=== PATIENT | male | born 1955 | race Caucasian/White ===

== ENCOUNTER 2017-01-26 13:04 | Outpatient (CLI) | payer OTHER ==
[2017-01-26 18:01] LABS: BASOPHILS # (AUTO) 0.1 10^3/uL (0.0-0.1); BASOPHILS % (AUTO) 0.9 %; EOSINOPHILS # (AUTO) 0.2 10^3/uL (0.0-0.7); EOSINOPHILS % (AUTO) 1.7 %; HCT - HEMATOCRIT 45.7 % (42.0-52.0); HGB - HEMOGLOBIN 15.5 g/dL (14.0-18.0); LYMPHOCYTES # (AUTO) 2.8 10^3/uL (1.5-3.5); LYMPHOCYTES % (AUTO) 27.7 %; MEAN CORPUSCULAR HEMOGLOBIN 30.8 pg (27.0-31.0); MEAN CORPUSCULAR VOLUME 90.8 fL (80.0-94.0); MEAN PLATELET VOLUME 7.5 fL (7.4-11.4); MONOCYTES # (AUTO) 0.6 10^3/uL (0.0-1.0); MONOCYTES % (AUTO) 5.6 %; NEUTROPHILS # (AUTO) 6.4 10^3/uL (1.5-6.6); NEUTROPHILS % (AUTO) 64.1 %; RED BLOOD COUNT 5.04 10^6/uL (4.70-6.10); RED CELL DISTRIBUTION WIDTH 13.9 % (12.0-15.0)
[2017-01-26 18:51] LABS: ALBUMIN/GLOBULIN RATIO 1.1 (1.0-2.2); BILIRUBIN,TOTAL 0.7 mg/dL (0.2-1.0); BUN - BLOOD UREA NITROGEN 9 mg/dL (6-20); CALCIUM 9.4 mg/dL (8.5-10.3); CARBON DIOXIDE - CO2 25 mmol/L (21-32); CHLORIDE 102 mmol/L (101-111); CHOL/HDL RATIO 5.1 (<5.0); CHOLESTEROL 192 mg/dL; CREATININE 0.9 mg/dL (0.6-1.2); GFR - MDRD 86 (>89); GLUCOSE 91 mg/dL (70-100); HDL CHOLESTEROL 38 mg/dL; LDL/HDL RATIO 3.1 (<3.6); MAGNESIUM 1.9 mg/dL (1.7-2.8); POTASSIUM 3.7 mmol/L (3.5-5.0); SODIUM 135 mmol/L (135-145); TRIGLYCERIDES 178 mg/dL; VLDL CHOLESTEROL 36 mg/dL
== END 2017-01-26 13:05 | disposition home or self-care (01) ==
LOC: LAB.F 13:04
PROVIDERS: ATTEND Internal Medicine
DX: E78.00 Pure hypercholesterolemia, unspecified (principal); J32.9 Chronic sinusitis, unspecified; I49.40 Unspecified premature depolarization
CPT/HCPCS: 36415; 80053; 80061; 83735; 84443; 85025

== ENCOUNTER 2017-02-01 10:58 | Outpatient (CLI) | payer OTHER ==
--- NOTE | 2017-02-01 12:56 | CT Report ---
CT OF SINUSES WITHOUT CONTRAST: 02/01/2017 CLINICAL INDICATION: Chronic sinus disease. TECHNIQUE: Axial CT images of the paranasal sinuses were obtained without contrast, following which s agittal and coronal reconstructions were performed. FINDINGS: There is a mucous retention cyst or polyp in the inferior right maxillary sinus. Otherwise , the paranasal sinuses are clear. The ostiomeatal units are patent bilaterally. There is rightward d eviation of the nasal septum. No osseous destruction is seen. The visualized intraorbital contents ar e unremarkable. IMPRESSION: MUCOUS RETENTION CYST OR POLYP IN THE INFERIOR RIGHT MAXILLARY SINUS. In accordance with CT protocol optimization, one or more of the following dose reduction techniques w ere utilized for this exam: automated exposure control, adjustment of mA and/or KV based on patient size, or use of iterative reconstructive technique. JOB #: [id number] EXT JOB #:[id number]
== END 2017-02-01 10:59 | disposition home or self-care (01) ==
LOC: DI 10:58
PROVIDERS: ATTEND Internal Medicine
DX: J32.9 Chronic sinusitis, unspecified (principal)
CPT/HCPCS: 70486

== ENCOUNTER 2017-06-24 07:13 | Outpatient (CLI) | payer OTHER ==
--- NOTE | 2017-06-24 10:43 | CT Report ---
CT ABDOMEN AND PELVIS WITHOUT CONTRAST: 06/24/2017 CLINICAL INDICATION: Renal stone, hematuria. TECHNIQUE: Axial CT images of the abdomen and pelvis were obtained without oral or intravenous contrast. COMPARISON: 08/09/2006 FINDINGS: Limited evaluation of the lung bases is unremarkable. ABDOMEN: There is no evidence of nephrolithiasis or hydronephrosis. No hydroureter is seen. Allowing for the lack of intravenous contrast enhancement, the liver, spleen, pancreas and adrenal glands are unremarkable. The gallbladder is not distended. No bowel dilatation, free gas, or free fluid is present. No abdominal adenopathy is seen. PELVIS: The urinary bladder appears unremarkable. No pelvic adenopathy or free fluid is present. Osseous structures demonstrate degenerative changes. IMPRESSION: NO EVIDENCE OF NEPHROLITHIASIS OR HYDRONEPHROSIS. CT DOSE REDUCTION STATEMENT In accordance with CT protocol optimization, one or more of the following dose reduction techniques were utilized for this exam: automated exposure control, adjustment of mA and/or KV based on patient size, or use of iterative reconstructive technique. TD: 06/24/2017 10:42
== END 2017-06-24 07:14 | disposition home or self-care (01) ==
LOC: DI 07:13
PROVIDERS: ATTEND Family Medicine
DX: N20.0 Calculus of kidney (principal); R31.9 Hematuria, unspecified
CPT/HCPCS: 74176

== ENCOUNTER 2017-07-02 08:37 | Outpatient (CLI) | payer OTHER ==
[2017-07-02 10:23] LABS: BASOPHILS # (AUTO) 0.1 10^3/uL (0.0-0.1); BASOPHILS % (AUTO) 0.8 %; EOSINOPHILS # (AUTO) 0.3 10^3/uL (0.0-0.7); EOSINOPHILS % (AUTO) 4.2 %; HGB - HEMOGLOBIN 12.3 g/dL (14.0-18.0); LYMPHOCYTES # (AUTO) 1.8 10^3/uL (1.5-3.5); LYMPHOCYTES % (AUTO) 23.5 %; MEAN CORPUSCULAR HEMOGLOBIN 30.6 pg (27.0-31.0); MEAN CORPUSCULAR HGB CONC 34.1 g/dL (32.0-36.0); MEAN CORPUSCULAR VOLUME 89.6 fL (80.0-94.0); MEAN PLATELET VOLUME 7.3 fL (7.4-11.4); MONOCYTES # (AUTO) 0.5 10^3/uL (0.0-1.0); MONOCYTES % (AUTO) 5.9 %; NEUTROPHILS # (AUTO) 5.1 10^3/uL (1.5-6.6); NEUTROPHILS % (AUTO) 65.6 %; PLT - PLATELET COUNT 302 10^3/uL (130-450); RED BLOOD COUNT 4.02 10^6/uL (4.70-6.10); RED CELL DISTRIBUTION WIDTH 13.3 % (12.0-15.0); WHITE BLOOD COUNT 7.9 x10^3/uL (4.8-10.8)
[2017-07-02 10:36] LABS: ALBUMIN/GLOBULIN RATIO 1.3 (1.0-2.2); ALKALINE PHOSPHATASE 77 IU/L (42-121); ALT ALANINE AMINOTRANSFERASE 49 IU/L (10-60); AST ASPARTATE AMINOTRANSFERASE 37 IU/L (10-42); BILIRUBIN,TOTAL 0.6 mg/dL (0.2-1.0); BUN - BLOOD UREA NITROGEN 15 mg/dL (6-20); CALCIUM 8.8 mg/dL (8.5-10.3); CARBON DIOXIDE - CO2 28 mmol/L (21-32); CHLORIDE 104 mmol/L (101-111); CHOL/HDL RATIO 2.6 (<5.0); CHOLESTEROL 89 mg/dL; CREATININE 0.9 mg/dL (0.6-1.2); GFR - MDRD 85 (>89); GLUCOSE 93 mg/dL (70-100); HDL CHOLESTEROL 34 mg/dL; LDL CHOLESTEROL,CALCULATED 38 mg/dL; LDL/HDL RATIO 1.1 (<3.6); SODIUM 137 mmol/L (135-145); TOTAL PROTEIN 7.2 g/dL (6.7-8.2); VLDL CHOLESTEROL 17 mg/dL
== END 2017-07-02 08:38 | disposition home or self-care (01) ==
LOC: LAB.F 08:37
PROVIDERS: ATTEND Family Medicine
DX: E78.00 Pure hypercholesterolemia, unspecified (principal); I25.10 Atherosclerotic heart disease of native coronary artery without angina pectoris; F32.9 Major depressive disorder, single episode, unspecified; M54.5 Low back pain
CPT/HCPCS: 36415; 80053; 80061; 83721; 84443; 85025

== ENCOUNTER 2017-07-05 14:03 | Outpatient (CLI) | payer OTHER ==
[2017-07-05 17:57] LABS: BASOPHILS # (AUTO) 0.1 10^3/uL (0.0-0.1); BASOPHILS % (AUTO) 1.1 %; EOSINOPHILS # (AUTO) 0.2 10^3/uL (0.0-0.7); EOSINOPHILS % (AUTO) 2.9 %; HGB - HEMOGLOBIN 11.9 g/dL (14.0-18.0); LYMPHOCYTES # (AUTO) 1.9 10^3/uL (1.5-3.5); LYMPHOCYTES % (AUTO) 25.6 %; MEAN CORPUSCULAR HEMOGLOBIN 30.1 pg (27.0-31.0); MEAN CORPUSCULAR HGB CONC 33.3 g/dL (32.0-36.0); MEAN CORPUSCULAR VOLUME 90.4 fL (80.0-94.0); MEAN PLATELET VOLUME 7.2 fL (7.4-11.4); MEAN RETIC VALUE 108.5; MONOCYTES # (AUTO) 0.5 10^3/uL (0.0-1.0); MONOCYTES % (AUTO) 6.2 %; NEUTROPHILS # (AUTO) 4.7 10^3/uL (1.5-6.6); NEUTROPHILS % (AUTO) 64.2 %; PLT - PLATELET COUNT 341 10^3/uL (130-450); RED BLOOD COUNT 3.94 10^6/uL (4.70-6.10); RED CELL DISTRIBUTION WIDTH 13.7 % (12.0-15.0); WHITE BLOOD COUNT 7.4 x10^3/uL (4.8-10.8)
[2017-07-05 18:24] LABS: FERRITIN 109.6 ng/mL (23.9-336.2)
[2017-07-05 18:28] LABS: FOLATE 11.12 ng/mL (5.90 - >24.8)
[2017-07-05 18:45] LABS: % IRON SATURATION 21 % (20-50); IRON 52 ug/dL (45-182); TOTAL IRON BINDING CAPACITY 248 ug/dL (250-450); TRANSFERRIN 177 mg/dL (180-329)
== END 2017-07-05 14:04 | disposition home or self-care (01) ==
LOC: LAB.F 14:03
PROVIDERS: ATTEND Family Medicine
DX: D64.9 Anemia, unspecified (principal)
CPT/HCPCS: 36415; 82607; 82728; 82746; 83540; 84466; 85025; 85044

== ENCOUNTER 2017-07-08 08:00 | Outpatient (CLI) | payer OTHER | END 2017-07-08 08:01 | disposition home or self-care (01) | LOC: LAB.F 08:00 | PROVIDERS: ATTEND Family Medicine | DX: D64.9 Anemia, unspecified (principal) | CPT/HCPCS: 82270 ==

== ENCOUNTER 2018-01-10 14:05 | Outpatient (CLI) | payer OTHER ==
[2018-01-10 17:45] LABS: BASOPHILS # (AUTO) 0.1 10^3/uL (0.0-0.1); EOSINOPHILS # (AUTO) 0.2 10^3/uL (0.0-0.7); EOSINOPHILS % (AUTO) 2.6 %; HGB - HEMOGLOBIN 13.5 g/dL (14.0-18.0); LYMPHOCYTES # (AUTO) 1.9 10^3/uL (1.5-3.5); LYMPHOCYTES % (AUTO) 29.5 %; MEAN CORPUSCULAR HEMOGLOBIN 30.5 pg (27.0-31.0); MEAN CORPUSCULAR HGB CONC 34.6 g/dL (32.0-36.0); MEAN CORPUSCULAR VOLUME 88.1 fL (80.0-94.0); MEAN PLATELET VOLUME 7.1 fL (7.4-11.4); MEAN RETIC VALUE 105.8; MONOCYTES # (AUTO) 0.5 10^3/uL (0.0-1.0); MONOCYTES % (AUTO) 7.7 %; NEUTROPHILS # (AUTO) 3.8 10^3/uL (1.5-6.6); NEUTROPHILS % (AUTO) 59.2 %; PLT - PLATELET COUNT 270 10^3/uL (130-450); RED BLOOD COUNT 4.42 10^6/uL (4.70-6.10); RED CELL DISTRIBUTION WIDTH 14.3 % (12.0-15.0); WHITE BLOOD COUNT 6.4 x10^3/uL (4.8-10.8)
[2018-01-10 18:20] LABS: FERRITIN 58.8 ng/mL (23.9-336.2)
[2018-01-10 18:22] LABS: % IRON SATURATION 30 % (20-50); IRON 89 ug/dL (45-182); TOTAL IRON BINDING CAPACITY 300 ug/dL (250-450); TRANSFERRIN 214 mg/dL (180-329)
[2018-01-10 18:24] LABS: FOLATE 10.4 ng/mL (5.90 - >24.8)
== END 2018-01-10 14:06 | disposition home or self-care (01) ==
LOC: LAB.F 14:05
PROVIDERS: ATTEND Family Medicine
DX: D64.9 Anemia, unspecified (principal)
CPT/HCPCS: 36415; 82607; 82728; 82746; 83540; 84466; 85025; 85044

== ENCOUNTER 2018-08-30 11:41 | Outpatient (CLI) | payer OTHER ==
[2018-08-30 18:02] LABS: HGB - HEMOGLOBIN 13.9 g/dL (14.0-18.0); MEAN CORPUSCULAR HGB CONC 33.7 g/dL (32.0-36.0); MEAN CORPUSCULAR VOLUME 88.8 fL (80.0-94.0); MEAN PLATELET VOLUME 7.6 fL (7.4-11.4); RED BLOOD COUNT 4.65 10^6/uL (4.70-6.10); WHITE BLOOD COUNT 6.4 x10^3/uL (4.8-10.8)
== END 2018-08-30 11:42 | disposition home or self-care (01) ==
LOC: LAB.F 11:41
PROVIDERS: ATTEND Physician Assistant Medical
DX: D64.9 Anemia, unspecified (principal)
CPT/HCPCS: 36415; 85027

== ENCOUNTER 2019-04-19 10:11 | Outpatient (CLI) | payer MEDICARE ==
[2019-04-19 17:20] LABS: ALBUMIN/GLOBULIN RATIO 1.1 (1.0-2.2); ALKALINE PHOSPHATASE 67 IU/L (42-121); ALT ALANINE AMINOTRANSFERASE 38 IU/L (10-60); AST ASPARTATE AMINOTRANSFERASE 31 IU/L (10-42); BILIRUBIN,TOTAL 1.1 mg/dL (0.2-1.0); BUN - BLOOD UREA NITROGEN 18 mg/dL (6-20); CALCIUM 8.9 mg/dL (8.5-10.3); CARBON DIOXIDE - CO2 24 mmol/L (21-32); CHLORIDE 106 mmol/L (101-111); CHOL/HDL RATIO 2.9 (<5.0); CHOLESTEROL 122 mg/dL; CREATININE 0.9 mg/dL (0.6-1.2); GFR - MDRD 85 (>89); GLUCOSE 95 mg/dL (70-100); HDL CHOLESTEROL 42 mg/dL; LDL CHOLESTEROL,CALCULATED 64 mg/dL; LDL/HDL RATIO 1.5 (<3.6); SODIUM 137 mmol/L (135-145); TOTAL PROTEIN 7.5 g/dL (6.7-8.2); VLDL CHOLESTEROL 16 mg/dL
== END 2019-04-19 10:12 | disposition home or self-care (01) ==
LOC: LAB.S 10:11
PROVIDERS: ATTEND Internal Medicine
DX: E78.00 Pure hypercholesterolemia, unspecified (principal)
CPT/HCPCS: 36415; 80053; 80061; 83721

== ENCOUNTER 2019-04-25 12:04 | Outpatient (CLI) | payer MEDICARE | END 2019-04-25 12:05 | disposition home or self-care (01) | LOC: LAB.S 12:04 | PROVIDERS: ATTEND Internal Medicine | DX: Z12.5 Encounter for screening for malignant neoplasm of prostate (principal) | CPT/HCPCS: 84153 ==

== ENCOUNTER 2019-05-31 09:56 | Day surgery (SDC) | payer MEDICARE ==
--- NOTE | 2019-05-31 10:21 | ANESTHESIA ---
Pre-Anesthesia VS, & Labs - Diagnosis screening, CAD - Procedure colonoscopy Vital Signs: Temp Pulse Resp BP Pulse Ox 36.3 C L 56 L 18 126/81 H 97 05/31/19 10:15 05/31/19 10:15 05/31/19 10:15 05/31/19 10:15 05/31/19 10:15 Height 5 ft 9 in Weight (kg) 76.5 kg - NPO >8 hours Home Medications and Allergies Home Medications: Ambulatory Orders Aspirin [Aspirin EC] 81 mg PO DAILY 05/26/19 Atorvastatin Calcium 80 mg PO QPM 05/26/19 Cetirizine [ZyrTEC] 10 mg PO DAILY PRN 05/26/19 Famotidine [Pepcid] 20 mg PO ONCE PRN 05/26/19 Fluticasone [Flonase] 1 sprays ANNA BID PRN 05/26/19 Lisinopril [Prinivil] 5 mg PO DAILY 05/26/19 Metoprolol Succinate 25 mg PO DAILY 05/26/19 Aspirin [Aspirin EC] 81 mg PO DAILY 05/26/19 Atorvastatin Calcium 80 mg PO QPM 05/26/19 Cetirizine [ZyrTEC] 10 mg PO DAILY PRN 05/26/19 Famotidine [Pepcid] 20 mg PO ONCE PRN 05/26/19 Fluticasone [Flonase] 1 sprays ANNA BID PRN 05/26/19 Lisinopril [Prinivil] 5 mg PO DAILY 05/26/19 Metoprolol Succinate 25 mg PO DAILY 05/26/19 Allergies/Adverse Reactions: Allergies Allergy/AdvReac Type Severity Reaction Status Date / Time oxycodone Allergy Rash Verified 05/26/19 15:17 Anes History & Medical History - Anesthetic History Anesthesia Complications: reports: No previous complications Family history of Anesthesia Complications: Denies Family history of Malignant Hyperthermia: Denies - Medical History Cardiovascular: reports: Hypertension, High cholesterol, [place], Other (hx Bigeminy) Gastrointestinal: reports: GERD Urinary: reports: Kidney stones Musculoskeletal: reports: None Endocrine/Autoimmune: reports: None Skin: reports: None - Surgical History General: Appendectomy, Colonoscopy, Other Cardiothoracic: Coronary stent Urologic: Ureterolithotomy (stones) Orthopedic: Rotator cuff repair Exam General: Alert, Oriented x3, Cooperative Dental: WNL Mouth Openin Fingerbreadth Neck Mobility: Normal Mallampati classification: I Thyromental Distance: greater than 6 cm Respiratory: Lungs clear, Normal breath sounds, No respiratory distress Cardiovascular: Regular rate Neurological: Normal speech Mental/Cognitive Status: Alert/Oriented X3, Normal for patient Cognitive Status: Within normal limits Plan Anesthesia Type: MAC Consent for Procedure(s) Verified and Reviewed: Yes Code Status: Attempt Resuscitation ASA classification: 3-Severe systemic disease Is this case an emergency?: No
[2019-05-31] MEDS ORDERED: LACTATED RINGERS 1,000 ML IV ONE (10:34)
[2019-05-31 12:40] VITALS: BP 115/72
== END 2019-05-31 09:57 | disposition home or self-care (01) ==
LOC: SDS 09:56
PROVIDERS: ATTEND Surgery
PROC: 0DBN8ZZ Excision of Sigmoid Colon, Via Natural or Artificial Opening Endoscopic (ICD-10-PCS; 2019-05-31)
PROC: 0DBH8ZZ Excision of Cecum, Via Natural or Artificial Opening Endoscopic (ICD-10-PCS; 2019-05-31)
PROC: 0DBK8ZZ Excision of Ascending Colon, Via Natural or Artificial Opening Endoscopic (ICD-10-PCS; principal; 2019-05-31 11:15)
DX: Z12.11 Encounter for screening for malignant neoplasm of colon (principal); D12.2 Benign neoplasm of ascending colon; D12.0 Benign neoplasm of cecum; K63.5 Polyp of colon; K57.30 Diverticulosis of large intestine without perforation or abscess without bleeding; I10 Essential (primary) hypertension; E78.00 Pure hypercholesterolemia, unspecified; I25.10 Atherosclerotic heart disease of native coronary artery without angina pectoris; I25.2 Old myocardial infarction; Z95.5 Presence of coronary angioplasty implant and graft; Z87.891 Personal history of nicotine dependence
CPT/HCPCS: 45380; J7120

== ENCOUNTER 2019-09-04 10:12 | Outpatient (CLI) | payer MEDICARE ==
--- NOTE | 2019-09-04 10:41 | XRAY Report ---
Reason: THORACIC BACK PAIN Procedure Date: 09/04/2019 Accession Number: [id number] / [id number] Procedure: XR - Thoracic Spine 2 View CPT Code: Final Report FULL RESULT: PROCEDURE: Thoracic Spine 2 View INDICATIONS: THORACIC BACK PAIN TECHNIQUE: 3 views of the thoracic spine were acquired. COMPARISON: None. FINDINGS: Bones: Loss of height noted in the T7 and T8 vertebral bodies compatible with compression fractures of indeterminate age. The T7 compression deformity results in approximately 30% loss of normal vertebral body height. The T8 compression deformity results in approximately 50% loss of normal vertebral body height. No retropulsed fragments are kyphosis associated with the T7 or T8 compression fractures. No dislocations. Mild multilevel degenerative disc changes. No suspicious bony lesions. 12 pairs of ribs are noted, and appear intact where visualized. Soft tissues: No paravertebral stripe thickening. IMPRESSION: T7 and T8 compression fractures of indeterminate age. Reviewed by: Farhana Khalil MD, PhD on 09/04/2019 10:36 AM PDT Approved by: Farhana Khalil MD, PhD on 09/04/2019 10:36 AM PDT Station ID: [id number]
== END 2019-09-04 10:13 | disposition home or self-care (01) ==
LOC: DI 10:12
PROVIDERS: ATTEND Registered Nurse
DX: M48.54XA Collapsed vertebra, not elsewhere classified, thoracic region, initial encounter for fracture (principal)
CPT/HCPCS: 72070

== ENCOUNTER 2020-01-23 08:56 | Outpatient (CLI) | payer MEDICARE ==
[2020-01-23 15:26] LABS: BASOPHILS # (AUTO) 0.1 10^3/uL (0.0-0.1); BASOPHILS % (AUTO) 0.8 %; EOSINOPHILS # (AUTO) 0.2 10^3/uL (0.0-0.7); EOSINOPHILS % (AUTO) 3.1 %; HGB - HEMOGLOBIN 13.9 g/dL (14.0-18.0); LYMPHOCYTES # (AUTO) 1.5 10^3/uL (1.5-3.5); LYMPHOCYTES % (AUTO) 24.3 %; MEAN CORPUSCULAR HEMOGLOBIN 30.8 pg (27.0-31.0); MEAN CORPUSCULAR HGB CONC 33.8 g/dL (32.0-36.0); MEAN CORPUSCULAR VOLUME 91.1 fL (80.0-94.0); MEAN PLATELET VOLUME 8.9 fL (7.4-11.4); MONOCYTES # (AUTO) 0.4 10^3/uL (0.0-1.0); MONOCYTES % (AUTO) 6.8 %; NEUTROPHILS % (AUTO) 64.5 %; PLT - PLATELET COUNT 306 10^3/uL (130-450); RED BLOOD COUNT 4.51 10^6/uL (4.70-6.10); RED CELL DISTRIBUTION WIDTH 12.5 % (12.0-15.0); WHITE BLOOD COUNT 6.2 x10^3/uL (4.8-10.8)
[2020-01-23 15:45] LABS: ALBUMIN 3.8 g/dL (3.2-5.5); CALCIUM 9.1 mg/dL (8.5-10.3); CREATININE 0.8 mg/dL (0.6-1.2); TOTAL PROTEIN 7.8 g/dL (6.7-8.2)
[2020-01-24 12:45] LABS: HEPATITIS C ANTIBODY NON-REACTIVE (NON-REACTIVE)
== END 2020-01-23 08:57 | disposition home or self-care (01) ==
LOC: LAB.S 08:56
PROVIDERS: ATTEND Registered Nurse
DX: R61 Generalized hyperhidrosis (principal); Z11.59 Encounter for screening for other viral diseases
CPT/HCPCS: 36415; 80053; 81599; 83036; 84443; 85025; 86480; 86803

== ENCOUNTER 2020-01-25 13:59 | Outpatient (CLI) | payer MEDICARE ==
--- NOTE | 2020-01-25 14:46 | XRAY Report ---
PROCEDURE: Chest 2 View X-Ray INDICATIONS: DIAPHORESIS TECHNIQUE: 2 view(s) of the chest. COMPARISON: None. FINDINGS: Surgical changes and devices: None. Lungs and pleura: No pleural effusions or pneumothorax. Lungs are clear. Mediastinum: Mediastinal contours are normal. Heart size is normal. Bones and chest wall: No suspicious bony abnormalities. Soft tissues appear unremarkable. IMPRESSION: No acute cardiopulmonary pathology. Reviewed by: Hunter Millan MD on 01/25/2020 1:44 PM [facility] Approved by: Hunter Millan MD on 01/25/2020 1:44 PM [facility] Station ID: [id number]
== END 2020-01-25 14:00 | disposition home or self-care (01) ==
LOC: DI.S 13:59
PROVIDERS: ATTEND Registered Nurse
DX: M54.6 Pain in thoracic spine (principal); R61 Generalized hyperhidrosis; Z87.891 Personal history of nicotine dependence
CPT/HCPCS: 36415; 71046; 81599

== ENCOUNTER 2020-02-06 14:15 | Outpatient (CLI) | payer MEDICARE ==
--- NOTE | 2020-02-06 14:54 | DEXA Report ---
PROCEDURE: Dexa Spine and/or Hip INDICATIONS: SCREENING FOR OSTEOPOROSIS TECHNIQUE: Dual energy x-ray absorptiometry (DXA) was performed on a Printed Piece System. Regions measur ed are the AP Spine, femoral neck, and if needed forearm. COMPARISON: None. FINDINGS: Lumbar Spine: Bone Mineral Density 1.114 g/cm/cm,T score -0.9, normal Left Hip: Bone Mineral Density 0.762 g/cm/cm,T score -2.4, osteopenia Left Femoral Neck: Bone Mineral Density 0.726 g/cm/cm, T score -2.6, osteoporosis (T score greater or equal to -1.0: NORMAL) (T score from -1.1 to -2.4: OSTEOPENIA) (T score less than or equal to -2.5 to: OSTEOPOROSIS) Impression: Osteoporosis. Patients with diagnosis of osteoporosis or osteopenia should have regular bone mineral density assess ment. For those eligible for Medicare, routine testing is allowed once every 2 years. Testing frequ ency can be increased for patients who have rapidly progressing disease or for those who are receivin g medical therapy to restore bone mass. Reviewed by: Farhana Khalil MD, PhD on 02/06/2020 2:53 PM PST Approved by: Farhana Khalil MD, PhD on 02/06/2020 2:53 PM PST Station ID: [id number]
--- NOTE | 2020-02-06 19:26 | CT Report ---
PROCEDURE: Low Dose Lung Cancer Screen INDICATIONS: PERSONAL HISTORY OF SMOKING TECHNIQUE: Noncontrast low-dose 5 mm thick sections acquired from the pulmonary apices to the posterior costophr enic angles. 7 mm thick coronal and sagittal MIP reformats were then acquired. For radiation dose r eduction, the following was used: automated exposure control, adjustment of mA and/or kV according t o patient size. COMPARISON: None. FINDINGS: Image quality: Excellent. Lungs and pleura: Bilateral upper lobe predominant pulmonary emphysematous changes with biapical sca rring. Mild bibasilar atelectasis more pronounced in the right. No focal consolidations. No septal th ickening or nodularity. No suspicious pulmonary nodules. Mediastinum: Heart size is normal. No pericardial effusion. Atherosclerotic calcifications of the c oronary arteries and thoracic aorta. No mediastinal adenopathy by size criteria. Thoracic aorta and central pulmonary arteries are normal in size. Esophagus is normal in caliber. No hiatal hernia. Bones and chest wall: No suspicious bony lesions. No acute vertebral body compression fractures. Ch ronic appearing anterior compression deformity of T9. Multilevel spondylosis of the imaged spine. No axillary or supraclavicular adenopathy by size criteria. The thyroid is normal in size. Abdomen: Visualized upper abdomen solid organs and bowel loops appear normal in the absence of contr ast. IMPRESSION: CT chest without acute cardiopulmonary abnormalities. Upper lobe predominant pulmonary emphysematous changes. No suspicious pulmonary nodules or mass lesions. LUNG-RADS 1. Recommend continue annual screening CT in 12 months. Reviewed by: Bennett Ferguson MD on 02/06/2020 6:24 PM [facility] Approved by: Bennett Ferguson MD on 02/06/2020 6:24 PM [place] Station ID: [id number]
== END 2020-02-06 14:16 | disposition home or self-care (01) ==
LOC: DI 14:15
PROVIDERS: ATTEND Registered Nurse
DX: Z13.820 Encounter for screening for osteoporosis (principal); M81.0 Age-related osteoporosis without current pathological fracture; Z12.2 Encounter for screening for malignant neoplasm of respiratory organs; Z87.891 Personal history of nicotine dependence; J43.9 Emphysema, unspecified; S22.060A Wedge compression fracture of T7-T8 vertebra, initial encounter for closed fracture
CPT/HCPCS: 77080; G0297

== ENCOUNTER 2020-02-28 08:59 | Outpatient (CLI) | payer MEDICARE ==
[2020-02-28 16:12] LABS: CHOL/HDL RATIO 2.9 (<5.0); CHOLESTEROL 135 mg/dL; HDL CHOLESTEROL 47 mg/dL; LDL CHOLESTEROL,CALCULATED 65 mg/dL; LDL/HDL RATIO 1.4 (<3.6); VLDL CHOLESTEROL 23 mg/dL
== END 2020-02-28 09:00 | disposition home or self-care (01) ==
LOC: LAB.S 08:59
PROVIDERS: ATTEND Internal Medicine Cardiovascular Disease
DX: I21.19 ST elevation (STEMI) myocardial infarction involving other coronary artery of inferior wall (principal)
CPT/HCPCS: 36415; 80061; 83721

== ENCOUNTER 2021-04-23 08:35 | Outpatient (CLI) | payer MEDICARE ==
[2021-04-23 15:11] LABS: BASOPHILS # (AUTO) 0.1 10^3/uL (0.0-0.1); BASOPHILS % (AUTO) 0.9 %; EOSINOPHILS # (AUTO) 0.2 10^3/uL (0.0-0.7); EOSINOPHILS % (AUTO) 3.3 %; HCT - HEMATOCRIT 40.6 % (42.0-52.0); HGB - HEMOGLOBIN 13.7 g/dL (14.0-18.0); LYMPHOCYTES # (AUTO) 1.6 10^3/uL (1.5-3.5); LYMPHOCYTES % (AUTO) 25.4 %; MEAN CORPUSCULAR HEMOGLOBIN 30.4 pg (27.0-31.0); MEAN CORPUSCULAR HGB CONC 33.7 g/dL (32.0-36.0); MEAN CORPUSCULAR VOLUME 90.2 fL (80.0-94.0); MEAN PLATELET VOLUME 9.9 fL (7.4-11.4); MONOCYTES # (AUTO) 0.5 10^3/uL (0.0-1.0); MONOCYTES % (AUTO) 7.4 %; NEUTROPHILS % (AUTO) 62.5 %; PLT - PLATELET COUNT 267 10^3/uL (130-450); RED CELL DISTRIBUTION WIDTH 12.5 % (12.0-15.0); WHITE BLOOD COUNT 6.3 x10^3/uL (4.8-10.8)
[2021-04-23 15:46] LABS: THYROID STIMULATING HORMONE 1.44 uIU/mL (0.34-5.60)
[2021-04-23 15:49] LABS: ALBUMIN 3.9 g/dL (3.2-5.5); ALBUMIN/GLOBULIN RATIO 1.1 (1.0-2.2); ALKALINE PHOSPHATASE 57 IU/L (42-121); ALT ALANINE AMINOTRANSFERASE 37 IU/L (10-60); AST ASPARTATE AMINOTRANSFERASE 32 IU/L (10-42); BUN - BLOOD UREA NITROGEN 13 mg/dL (6-20); CALCIUM 9.3 mg/dL (8.5-10.3); CARBON DIOXIDE - CO2 26 mmol/L (21-32); CHLORIDE 101 mmol/L (101-111); CHOL/HDL RATIO 3.3 (<5.0); CHOLESTEROL 137 mg/dL; CREATININE 0.9 mg/dL (0.6-1.2); GFR - MDRD 84 (>89); GLUCOSE 97 mg/dL (70-100); HDL CHOLESTEROL 41 mg/dL; LDL CHOLESTEROL,CALCULATED 72 mg/dL; LDL/HDL RATIO 1.8 (<3.6); POTASSIUM 4.1 mmol/L (3.5-5.0); SODIUM 135 mmol/L (135-145); TOTAL PROTEIN 7.4 g/dL (6.7-8.2); TRIGLYCERIDES 120 mg/dL; VLDL CHOLESTEROL 24 mg/dL
== END 2021-04-23 08:36 | disposition home or self-care (01) ==
LOC: LAB.S 08:35
PROVIDERS: ATTEND Registered Nurse
DX: I10 Essential (primary) hypertension (principal); I25.10 Atherosclerotic heart disease of native coronary artery without angina pectoris; E78.00 Pure hypercholesterolemia, unspecified; Z87.891 Personal history of nicotine dependence
CPT/HCPCS: 36415; 80053; 80061; 83721; 84153; 84443; 85025

== ENCOUNTER 2021-05-27 09:29 | Outpatient (CLI) | payer MEDICARE ==
--- NOTE | 2021-05-27 13:33 | CT Report ---
PROCEDURE: Low Dose Lung Cancer Screen INDICATIONS: HIST OF SMOKING TECHNIQUE: Noncontrast low-dose images were acquired from the pulmonary apices to the posterior costophrenic ang les. Multiplanar MIP reformats were then acquired. For radiation dose reduction, the following was used: automated exposure control, adjustment of mA and/or kV according to patient size. COMPARISON: February 06, 2020. FINDINGS: Thyroid: Homogeneous. Vasculature: Normal size and contour. Calcified atheromatous change. Heart: No cardiomegaly or pericardial effusion. Coronary artery calcification with stent in the LAD. Mediastinum/esteban: No pathologically enlarged lymph nodes by size criteria. Lung/pleura: Centrilobular and paraseptal emphysematous changes. Groundglass airspace opacities in th e bilateral lower lobes. No pleural effusion or pneumothorax. No suspicious pulmonary nodule or mass. Tracheobronchial tree: Patent. Upper abdomen: No acute abnormality. Bones: No significant abnormality. Mild anterior compression deformity of T8 with minimal retropulsio n, which appears remote. Chest wall: No significant abnormality. IMPRESSION: 1.No suspicious pulmonary nodule or mass. 2.Groundglass airspace opacities and bilateral lower lobes. Differential considerations include atele ctasis and/or an atypical infectious process. Lung RADS: 1. Continue annual CT screening in 12 months. Reviewed by: Brian Patel MD on 05/27/2021 1:32 PM PST Approved by: Brian Patel MD on 05/27/2021 1:32 PM PST Station ID: [id number]
== END 2021-05-27 09:30 | disposition home or self-care (01) ==
LOC: DI 09:29
PROVIDERS: ATTEND Registered Nurse
DX: Z12.2 Encounter for screening for malignant neoplasm of respiratory organs (principal); J43.9 Emphysema, unspecified; R91.8 Other nonspecific abnormal finding of lung field; Z87.891 Personal history of nicotine dependence

== ENCOUNTER 2022-01-27 07:56 | Outpatient (CLI) | payer MEDICARE ==
--- NOTE | 2022-01-27 15:33 | Ultrasound Report ---
PROCEDURE: Aorta Screening INDICATIONS: HIST OF SMOKING TECHNIQUE: Real time scanning was performed of the aorta and iliac arteries, with image documentatio n. COMPARISON: None FINDINGS: Aorta: Proximal aortic diameter measures 2.4 x 2.3 cm. Mid-aorta measures 2.0 x 2.2 cm. Distal aor tic diameter is 2.1 x 2.0 cm. Mild calcified plaque. Iliac arteries: Right common iliac artery measures 1.1 x 1.2 cm. Left common iliac artery measures 1.2 x 1.1 cm. IMPRESSION: Mild calcified plaque. No aneurysmal dilation. Reviewed by: Neva Sousa MD on 01/27/2022 3:32 PM PDT Approved by: Neva Sousa MD on 01/27/2022 3:32 PM PDT Station ID: [id number]
== END 2022-01-27 07:57 | disposition home or self-care (01) ==
LOC: DI 07:56
PROVIDERS: ATTEND Registered Nurse
DX: Z13.6 Encounter for screening for cardiovascular disorders (principal); Z87.891 Personal history of nicotine dependence; I70.0 Atherosclerosis of aorta

== ENCOUNTER 2022-05-14 11:59 | Outpatient (CLI) | payer MEDICARE ==
[~2022-05-14 11:59] MED LIST: BUPIVACAINE 0.5% PF 10 ML VIAL ONE; GADOBUTROL 7.5 MMOL/7.5 ML VIAL ONE; LIDOCAINE-MPF 1% 5 ML VIAL ONE
[2022-05-14] MEDS ORDERED: GADOBUTROL 7.5 MMOL/7.5 ML VIAL IVP ONE (13:26)
[2022-05-14] MEDS ORDERED: LIDOCAINE-MPF 1% 5 ML VIAL SUBQ ONE (13:27)
--- NOTE | 2022-05-14 17:27 | MRI Report ---
PROCEDURE: ARTHROGRAM HIP - LT INDICATIONS: LEFT HIP PAIN CONTRAST: Dilute intra-articular gadolinium TECHNIQUE: After the administration of 10 mL of dilute intra-articular Gadolinium contrast, coronal STIR of the bony pelvis; coronal and oblique axial T1 spin echo with fat saturation, axial T2 fast spin echo with fat saturation, sagittal T1 spin echo with and without fat saturation of the involved hip. COMPARISON: None FINDINGS: Image quality: Excellent. Bones and joints: There is mild periarticular osteophyte formation at the bilateral hip joints. Mild subchondral degenerative marrow edema within the bilateral superior acetabula. Mild subchondral dege nerative marrow edema adjacent to the bilateral sacroiliac joints. Bone marrow of the pelvic ring and proximal femurs demonstrates otherwise normal signal throughout. No intraosseous lesions or fractur es. No avascular necrosis of the femoral head. The visualized lower lumbar spine appears normally a ligned. The ligamental, neck, and labral plicae appear normal where visualized. Tendons and ligaments: The gluteus medius and minimus tendons appear intact, without associated musc le atrophy. There is mild T2 signal elevation adjacent to the femoral origins of the left gluteus med ius and minimus tendons. The nearby proximal iliotibial band also appears intact. The iliopsoas ten don appears intact, without adjacent bursal fluid collections or evidence for impingement syndrome. The origin of the hamstring tendon is intact at the ischial tuberosity, as well as the associated sac rotuberous ligament. The straight and reflected heads of the rectus femoris muscle origin appear int act, as well as the conjoint tendon. The ligamentum teres appears intact where visualized. Labrum and cartilage: There is diffuse tearing of the left hip labrum. Cartilage surface of the femor al head appears of normal thickness. No paralabral cysts. The alpha angle of the femur is within no rmal limits at less than 55 degrees. Soft tissues: Visualized muscles demonstrate normal bulk and internal signal. Quadratus femoris mus gabbie demonstrates no internal edema to suggest ischiofemoral impingement. The proximal sciatic neurov ascular bundle appears normal adjacent to the hamstring tendons. No free pelvic fluid. Bladder wall thickness is normal. Genitourinary structures and bowel loops appear normal where visualized. IMPRESSION: 1. Bilateral hip osteoarthritis. 2. Left hip labral tearing. 3. Insertional tendinitis of the left gluteus medius and minimus tendons. 4. Mild bilateral sacroiliac joint osteoarthritis. Reviewed by: Otf Tucker MD on 05/14/2022 4:51 PM PST Approved by: Otf Tucker MD on 05/14/2022 4:51 PM PST Station ID: [id number]
== END 2022-05-14 12:00 | disposition home or self-care (01) ==
LOC: DI 11:59
PROVIDERS: ATTEND Nurse Practitioner
DX: M16.0 Bilateral primary osteoarthritis of hip (principal); S73.102A Unspecified sprain of left hip, initial encounter; M76.02 Gluteal tendinitis, left hip; M47.898 Other spondylosis, sacral and sacrococcygeal region
CPT/HCPCS: 27093; 73722; 77002; A9585; Q9965

== ENCOUNTER 2022-05-25 10:57 | Outpatient (CLI) | payer MEDICARE ==
--- NOTE | 2022-05-25 13:35 | CT Report ---
PROCEDURE: Low Dose Lung Cancer Screen INDICATIONS: HIST OF SMOKING TECHNIQUE: Noncontrast low-dose axial images were acquired from the pulmonary apices to the posterior costophren ic angles. Multiplanar MIP reformats were then reconstructed. For radiation dose reduction, the follo wing was used: automated exposure control, adjustment of mA and/or kV according to patient size. COMPARISON: Chest CT 05/27/2021 FINDINGS: Image quality: Excellent. Lungs and pleura: Moderate emphysema. 3 mm right lower lobe nodule (4/210), unchanged. No pleural ef fusion. Mediastinum: No pericardial effusion. No mediastinal adenopathy by size criteria. Thoracic aorta a nd central pulmonary arteries are normal in size. Esophagus is normal in caliber. Multivessel coron micah artery calcifications and/or stents. Bones and chest wall: Multilevel degenerative change of the visualized spine. No axillary or suprac lavicular adenopathy by size criteria. Abdomen: Visualized upper abdomen solid organs and bowel loops appear normal in the absence of contr ast. IMPRESSION: Lung RADS 2-benign appearance or behavior. Recommendation: Continue annual screening with low-dose no ncontrast chest CT in 12 months. Reviewed by: Dario Jeffers MD on 05/25/2022 1:33 PM PST Approved by: Dario Jeffers MD on 05/25/2022 1:33 PM PST Station ID: [id number]
== END 2022-05-25 10:58 | disposition home or self-care (01) ==
LOC: DI 10:57
PROVIDERS: ATTEND Registered Nurse
DX: Z12.2 Encounter for screening for malignant neoplasm of respiratory organs (principal); Z87.891 Personal history of nicotine dependence; M81.0 Age-related osteoporosis without current pathological fracture

== ENCOUNTER 2022-05-25 10:57 | Outpatient (CLI) | payer MEDICARE ==
--- NOTE | 2022-05-25 13:42 | DEXA Report ---
PROCEDURE: Dexa Spine and/or Hip INDICATIONS: OSTEOPOROSIS TECHNIQUE: Dual energy x-ray absorptiometry (DXA) was performed on a [employer] System. Regions measur ed are the AP Spine, femoral neck, and if needed forearm. COMPARISON: 02/06/2020. FINDINGS: Lumbar Spine: Bone Mineral Density 1.155 g/cm/cm,T score -0.7, there is interval 2.6% decrease in total lumbar s pine bone mineral density. Left Femoral Neck: Bone Mineral Density 0.670 g/cm/cm, T score -3.1. Left Hip: Bone Mineral Density 0.722 g/cm/cm,T score -2.6, there is interval 5.2% decrease in left hip bone mi neral density. (T score greater or equal to -1.0: NORMAL) (T score from -1.1 to -2.4: OSTEOPENIA) (T score less than or equal to -2.5 to: OSTEOPOROSIS) Impression: Osteoporosis. Patients with diagnosis of osteoporosis or osteopenia should have regular bone mineral density assess ment. For those eligible for Medicare, routine testing is allowed once every 2 years. Testing frequ ency can be increased for patients who have rapidly progressing disease or for those who are receivin g medical therapy to restore bone mass. Reviewed by: Hunter Millan MD on 05/25/2022 1:41 PM PST Approved by: Hunter Millan MD on 05/25/2022 1:41 PM PST Station ID: [id number]
== END 2022-05-25 10:58 | disposition home or self-care (01) ==
LOC: DI 10:57
PROVIDERS: ATTEND Registered Nurse
DX: M81.0 Age-related osteoporosis without current pathological fracture (principal)

== ENCOUNTER 2023-02-23 09:12 | Outpatient (CLI) | payer MEDICARE ==
[2023-02-23 15:50] LABS: BASOPHILS # (AUTO) 0.1 10^3/uL (0.0-0.1); BASOPHILS % (AUTO) 0.8 %; EOSINOPHILS # (AUTO) 0.2 10^3/uL (0.0-0.7); HCT - HEMATOCRIT 42.2 % (42.0-52.0); HGB - HEMOGLOBIN 13.8 g/dL (14.0-18.0); LYMPHOCYTES # (AUTO) 1.6 10^3/uL (1.5-3.5); LYMPHOCYTES % (AUTO) 26.2 %; MEAN CORPUSCULAR HEMOGLOBIN 29.4 pg (27.0-31.0); MEAN CORPUSCULAR HGB CONC 32.7 g/dL (32.0-36.0); MEAN CORPUSCULAR VOLUME 89.8 fL (80.0-94.0); MEAN PLATELET VOLUME 9.7 fL (7.4-11.4); MONOCYTES # (AUTO) 0.5 10^3/uL (0.0-1.0); MONOCYTES % (AUTO) 8.6 %; NEUTROPHILS # (AUTO) 3.6 10^3/uL (1.5-6.6); NEUTROPHILS % (AUTO) 61.2 %; PLT - PLATELET COUNT 256 10^3/uL (130-450); RED CELL DISTRIBUTION WIDTH 12.4 % (12.0-15.0); WHITE BLOOD COUNT 5.9 x10^3/uL (4.8-10.8)
[2023-02-23 16:14] LABS: ALBUMIN 4.4 g/dL (3.2-5.5); ALBUMIN/GLOBULIN RATIO 1.7 (1.0-2.2); ALKALINE PHOSPHATASE 53 IU/L (42-121); ALT ALANINE AMINOTRANSFERASE 25 IU/L (10-60); AST ASPARTATE AMINOTRANSFERASE 25 IU/L (10-42); BILIRUBIN,TOTAL 0.6 mg/dL (0.2-1.0); BUN - BLOOD UREA NITROGEN 15 mg/dL (6-20); CALCIUM 9.8 mg/dL (8.5-10.3); CARBON DIOXIDE - CO2 26 mmol/L (21-32); CHLORIDE 104 mmol/L (101-111); CHOLESTEROL 144 mg/dL; CREATININE 0.9 mg/dL (0.6-1.3); GFR - MDRD 84 (>89); GLUCOSE 90 mg/dL (74-104); HDL CHOLESTEROL 48 mg/dL; LDL CHOLESTEROL,CALCULATED 61 mg/dL; LDL/HDL RATIO 1.3 (<3.6); SODIUM 136 mmol/L (135-145); TRIGLYCERIDES 173 mg/dL (48-352); VLDL CHOLESTEROL 35 mg/dL
[2023-02-23 16:27] LABS: THYROID STIMULATING HORMONE 1.34 uIU/mL (0.34-5.60)
== END 2023-02-23 09:13 | disposition home or self-care (01) ==
LOC: LAB.S 09:12
PROVIDERS: ATTEND Registered Nurse
DX: I10 Essential (primary) hypertension (principal); Z79.899 Other long term (current) drug therapy; Z87.891 Personal history of nicotine dependence; I25.10 Atherosclerotic heart disease of native coronary artery without angina pectoris; E78.00 Pure hypercholesterolemia, unspecified
CPT/HCPCS: 36415; 80053; 80061; 83721; 84153; 84443; 85025

== ENCOUNTER 2023-05-25 09:17 | Outpatient (CLI) | payer MEDICARE ==
--- NOTE | 2023-05-25 14:59 | CT Report ---
PROCEDURE: Lung Cancer Screen INDICATIONS: HIST OF SMOKING TECHNIQUE: A CT scan of the chest was performed. Intravenous contrast media was not administered. Images were re corded and evaluated at appropriate window settings. Reformats: axial MIP of the chest, coronal and s agittal. For radiation dose reduction, the following was used: automated exposure control, adjustment of mA and/or kV according to patient size. COMPARISON: Lung cancer screening chest CT 05/25/2022. FINDINGS: Image quality: Excellent. Prior cancer history: Unsure. Lungs and pleura: No pleural effusions. No pneumothorax. No suspicious pulmonary nodules which requir e follow up. A few pulmonary nodules measuring 0.4 cm or less. For example right lower lobe 0.2 cm, ( 4/58), unchanged. Mediastinum: Heart size is normal. Three-vessel coronary artery calcifications. No pericardial effusi on. No large vessel abnormality. No mediastinal adenopathy by size criteria. Chest wall and lower neck: Thyroid is unremarkable. No axillary or supraclavicular adenopathy by size . Bones: No aggressive osseous abnormality. Upper Abdomen: Dense calcified. Carotid plaque in the aorta. Minimal ectasia is seen. Small nonobstru cting left kidney stone. No adrenal nodule.. IMPRESSION: No new or enlarging pulmonary nodules. A few small pulmonary nodules measuring 0.4 cm or less. Lung RAD: 2 - Benign. Recommendation: Continue annual screening in 12 Months with LDCT Non-Lung Significant Findings: Coronary Arterial Calcification - Moderate or Severe. Reviewed by: Modesto Beal MD on 05/25/2023 2:57 PM PST Approved by: Modesto Beal MD on 05/25/2023 2:57 PM PST Station ID: [id number]
== END 2023-05-25 09:18 | disposition home or self-care (01) ==
LOC: DI 09:17
PROVIDERS: ATTEND Registered Nurse
DX: Z12.2 Encounter for screening for malignant neoplasm of respiratory organs (principal); Z87.891 Personal history of nicotine dependence; Z80.1 Family history of malignant neoplasm of trachea, bronchus and lung; R91.8 Other nonspecific abnormal finding of lung field; I25.10 Atherosclerotic heart disease of native coronary artery without angina pectoris

== ENCOUNTER 2023-08-16 09:35 | Emergency (ER) | payer MEDICARE ==
--- NOTE | 2023-08-16 09:58 | ED Physician Documentation ---
History of Present Illness - Stated complaint Stated Complaint: CP/ABD PX - Chief complaint Chief Complaint: Abd Pain - History obtained from History obtained from: Patient - Additonal information Additional information: Patient is a 68-year-old male with a History of coronary artery disease, prior stent in 2018, kidney stones, presenting for left-sided abdominal pain with associated dry heaving that woke him up from his sleep at 630. Patient describes it as just pain. He denies any chest pain to me but per RN had reported that to him. No fever, cough, congestion, shortness of air, vomiting, diarrhea. Has had a prior appendectomy. Nothing makes his symptoms better or worse. Review of Systems Constitutional: denies: Fever Nose: denies: Congestion Cardiac: denies: Palpitations Respiratory: denies: Dyspnea GI: reports: Abdominal Pain, Nausea. denies: Vomiting, Diarrhea : denies: Dysuria, Hematuria PD PAST MEDICAL HISTORY - Past Medical History Past Medical History: Yes Cardiovascular: Hypertension, High cholesterol, [place], Other Endocrine/Autoimmune: None GI: GERD : Kidney stones HEENT: Chronic vision loss Musculoskeletal: None Derm: None - Past Surgical History Past Surgical History: Yes General: Appendectomy, Colonoscopy, Other Ortho: Rotator cuff repair Cardiovascular: Coronary stent - Present Medications Home Medications: Ambulatory Orders Medication Instructions Recorded Confirmed Aspirin [Aspirin EC] 81 mg PO DAILY 05/26/19 08/16/23 Atorvastatin Calcium 80 mg PO QPM 05/26/19 08/16/23 Cetirizine [ZyrTEC] 10 mg PO DAILY PRN 05/26/19 08/16/23 Famotidine [Pepcid] 20 mg PO ONCE PRN 05/26/19 08/16/23 Fluticasone [Flonase] 1 sprays ANNA BID PRN 05/26/19 08/16/23 Metoprolol Succinate 25 mg PO DAILY 05/26/19 08/16/23 lisinopriL [Prinivil] 5 mg PO DAILY 05/26/19 08/16/23 Ciprofloxacin HCl [Cipro] 500 mg PO BID #14 tablet 08/16/23 HYDROcod/ACETAM 5/325 [Procious 5/325] 1 tablet PO Q6H PRN #14 tablet 08/16/23 Ondansetron Odt [Zofran] 4 mg TL Q6H PRN #10 tablet 08/16/23 Tamsulosin [Flomax] 0.4 mg PO DAILY #14 cap 08/16/23 - Allergies Allergies/Adverse Reactions: Allergies Allergy/AdvReac Type Severity Reaction Status Date / Time oxycodone Allergy Rash Verified 08/16/23 09:48 - Social History Does the pt smoke?: No Smoking Status: Never smoker Does the pt drink ETOH?: No Does the pt have substance abuse?: No PD ED PE NORMAL - General General: Alert and oriented X 3, No acute distress, Well developed/nourished - HEENT HEENT: Atraumatic, Moist mucous membranes, Pharynx benign - Neck Neck: Supple, no meningeal sign - Cardiac Cardiac: RRR, Strong equal pulses - Respiratory Respiratory: No respiratory distress, Clear bilaterally - Abdomen Abdomen: Normal bowel sounds, Soft, Non tender, Non distended - Derm Derm: Warm and dry - Neuro Neuro: Normal speech Results - Vitals Vitals: Vital Signs - 24 hr 08/16/23 08/16/23 08/16/23 09:45 10:36 11:08 Temperature 36.2 C L Heart Rate 76 85 93 Respiratory 22 20 22 Rate Blood Pressure 126/69 136/74 H 146/74 H O2 Saturation 100 98 98 08/16/23 13:28 Temperature 36.8 C Heart Rate 61 Respiratory 17 Rate Blood Pressure 124/80 O2 Saturation 92 Oxygen O2 Source Room air - EKG (time done) 0941 EKG releavant findings:: EKG personally interpreted by author of this note. Relevant findings are: Rate 68, normal sinus rhythm, no STEMI, QTc 469 - Labs Labs: Laboratory Tests 08/16/23 08/16/23 08/16/23 10:07 10:07 12:37 WBC 12.6 H RBC 4.66 L Hgb 13.8 L Hct 42.0 MCV 90.1 MCH 29.6 MCHC 32.9 RDW 12.8 Plt Count 260 MPV 9.4 Neut # (Auto) 10.8 H Lymph # (Auto) 1.1 L Coleman # (Auto) 0.5 Eos # (Auto) 0.0 Baso # (Auto) 0.0 Absolute Nucleated RBC 0.00 Nucleated RBC % 0.0 Sodium 138 Potassium 3.4 L Chloride 105 Carbon Dioxide 22 Anion Gap 11.0 BUN 17 Creatinine 1.1 Estimated GFR (MDRD) 66 L Glucose 174 H Calcium 10.2 Total Bilirubin 0.8 AST 36 ALT 31 Alkaline Phosphatase 59 Troponin I High Sens 5.8 Total Protein 7.6 Albumin 4.5 Globulin 3.1 Albumin/Globulin Ratio 1.5 Lipase 19 Urine Color DARK YELLOW Urine Clarity SL. CLOUDY Urine pH 5.0 Ur Specific [place] 1.020 Urine Protein 30 H Urine Glucose (UA) NEGATIVE Urine Ketones TRACE Urine Occult Blood LARGE H Urine Nitrite NEGATIVE Urine Bilirubin SMALL H Urine Urobilinogen 0.2 (NORMAL) Ur Leukocyte Esterase NEGATIVE Urine RBC TNTC H Urine WBC 11-25 H Ur Squamous Epith Cells NONE SEEN Urine Bacteria Many H Urine Mucus Few Strands Ur Microscopic Review INDICATED Urine Culture Comments INDICATED PD Medical Decision Making - ED course Complexity details: reviewed results, re-evaluated patient, d/w patient ED course: Patient is a 68-year-old male presenting for evaluation of left abdominal pain with associated nausea and dry heaving. He had reported to the nurse that the pain radiated to the chest but denies that to me. EKG was obtained without sign s of acute ischemia. CBC, chemistry, urinalysis were obtained and reviewed. Mild elevation white count of 12,000. Troponin was obtained given the prior reports of chest pain which is normal and I feel symptoms are atypical for ACS. Patient was given IV morphine, IV Dilaudid, Zofran, Toradol with improvement in pain. CT scan of the abdomen and pelvis was obtained which demonstrates a 5 mm proximal left ureter stone. Urine analysis showed many bacteria along with 11- 25 WBC. He does not appear septic and renal function is preserved. I discussed with on-call urology who recommends close outpatient follow-up and antibiotics. Patient counseled regarding treatment plan. He has already reached out to his PCP to get the referral to Dr. Lafleur. He and his are advised on concerning symptoms to return for and pain is well-controlled here. 1315 - Discussed with Dr. Lafleur. Recommends close outpatient follow-up and antibiotics given urine analysis. Departure - Departure Disposition: 01 Home, Self Care Clinical Impression: Left ureteral stone, UTI (urinary tract infection) Condition: Stable Instructions: ED Stone Renal W Colic Follow-Up: Carlos Enrique Lafleur MD [Provider Admit Priv/Credential] - Within 1 week Prescriptions: Ciprofloxacin HCl [Cipro] 500 mg PO BID #14 tablet Tamsulosin [Flomax] 0.4 mg PO DAILY #14 cap HYDROcod/ACETAM 5/325 [Procious 5/325] 1 tablet PO Q6H PRN #14 tablet PRN Reason: Pain Ondansetron Odt [Zofran] 4 mg TL Q6H PRN #10 tablet PRN Reason: Nausea / Vomiting Comments: You have a 5 mm kidney stone in your left ureter which is the tube that connects the kidney to the bladder.I would recommend close follow-up with urologist and have included information for a local urologist here at [facility]. Your CT scan also shows incidental findings of diverticulosis as well as gallstones but no signs of inflammation. Your prescriptions were sent to [facility] in [place] including a narcotic pain medication as well as an antinausea medication and Flomax to help you pass the stone. In addition your urine did have markers for infection so we are also starting you on an antibiotic. Return to the ER if you develop any worsening symptoms such as uncontrolled pain, fevers. I am prescribing a short course of narcotic pain medication for you. These are potentially dangerous and addictive medications that should be used carefully. These medications may constipate you. Take an bfze-hjk-uagchkj stool softener (docusate) twice daily with plenty of water while taking these medications. If you go 24 hours without a bowel movement, take ynrc-yyy-pvzynbj miralax, per package instructions. Do not drink or drive while taking these medications. If you received narcotic or sedating medications while in the emergency department, do not drive for 24 hours. Store this medication in a safe, secure place and out of reach of children. It is a violation of federal law to give or sell this medication to another person or to use in a manner other than prescribed. The ED will not refill narcotic prescriptions, including prescriptions lost or stolen. To dispose of unwanted medications: 1. [facility] at [address] in [place] has a medication drop box. They accept prescription medications (in pill form) Wednesday through Wednesday 9:00 a.m. to 5:00 p.m. 2. The [facility] [employer] accepts prescription medications (in pill form only) for disposal year round. Call for more information. 3. Contact the [facility] for the next [employer] sponsored prescription d rug collection event. , [phone], or [phone]; Note that many narcotic pain relievers also contain Tylenol/acetaminophen. Please ensure that your total dose of acetaminophen from all sources does not exceed 3 g (3000 mg) per day. Forms: PCP List Discharge Date/Time: 08/16/23 13:30
[2023-08-16] MEDS: ONDANSETRON 4 MG/2 ML VIAL IVP STA (10:09)
[2023-08-16] MEDS: MORPHINE 2 MG/ML CARPUJECT IVP STA (10:10)
[2023-08-16 10:12] LABS: BASOPHILS % (AUTO) 0.3 %; EOSINOPHILS % (AUTO) 0.2 %; HGB - HEMOGLOBIN 13.8 g/dL (14.0-18.0); LYMPHOCYTES # (AUTO) 1.1 10^3/uL (1.5-3.5); LYMPHOCYTES % (AUTO) 9.1 %; MEAN CORPUSCULAR HEMOGLOBIN 29.6 pg (27.0-31.0); MEAN CORPUSCULAR HGB CONC 32.9 g/dL (32.0-36.0); MEAN CORPUSCULAR VOLUME 90.1 fL (80.0-94.0); MEAN PLATELET VOLUME 9.4 fL (7.4-11.4); MONOCYTES # (AUTO) 0.5 10^3/uL (0.0-1.0); MONOCYTES % (AUTO) 3.9 %; NEUTROPHILS # (AUTO) 10.8 10^3/uL (1.5-6.6); NEUTROPHILS % (AUTO) 86.1 %; PLT - PLATELET COUNT 260 10^3/uL (130-450); RED BLOOD COUNT 4.66 10^6/uL (4.70-6.10); RED CELL DISTRIBUTION WIDTH 12.8 % (12.0-15.0); WHITE BLOOD COUNT 12.6 x10^3/uL (4.8-10.8)
--- NOTE | 2023-08-16 10:16 | XRAY Report ---
PROCEDURE: Chest 1V INDICATIONS: CP TECHNIQUE: One view of the chest was acquired. COMPARISON: 01/25/2020 FINDINGS: Surgical changes and devices: None. Lungs and pleura: No pleural effusions or pneumothorax. There is mild diffuse reticular nodular pulm onary opacity. Mediastinum: Mediastinal contours appear normal. Heart size is normal. Bones and chest wall: No suspicious bony lesions. Overlying soft tissues appear unremarkable. IMPRESSION: Mild edema versus atypical pneumonia. Reviewed by: Otf Jeffery MD on 08/16/2023 10:15 AM PDT Approved by: Otf Jeffery MD on 08/16/2023 10:15 AM PDT Station ID: [id number]
[2023-08-16 10:37] LABS: ALBUMIN 4.5 g/dL (3.2-5.5); ALBUMIN/GLOBULIN RATIO 1.5 (1.0-2.2); BILIRUBIN,TOTAL 0.8 mg/dL (0.2-1.0); CALCIUM 10.2 mg/dL (8.5-10.3); CREATININE 1.1 mg/dL (0.6-1.3); POTASSIUM 3.4 mmol/L (3.5-4.5); TOTAL PROTEIN 7.6 g/dL (6.4-8.9); TROPONIN I HIGH SENSITIVITY 5.8 ng/L (2.3-19.7)
[2023-08-16] MEDS ORDERED: iohexoL-300 100 ML VIAL ONE (10:39)
[2023-08-16] MEDS: HYDROmorphone 1 MG/ML CARPUJECT IVP STA (11:07)
--- NOTE | 2023-08-16 11:26 | CT Report ---
PROCEDURE: Abdomen/Pelvis W INDICATIONS: L sided abd pain CONTRAST: Omni 300 100ml TECHNIQUE: After the administration of intravenous contrast, a CT scan of the abdomen and pelvis was performed. Images were recorded and evaluated at appropriate window settings. Reformats: coronal and sagittal. F or radiation dose reduction, the following was used: automated exposure control, adjustment of mA and /or kV according to patient size. COMPARISON: None. FINDINGS: Image quality: Diagnostic. Lower chest: Dependent atelectasis in posterior aspect of bilateral lung bases are seen. Heart size i s normal, no pericardial effusion.. Liver: No solid mass. Gallbladder: Cholelithiasis without wall thickening. Biliary tree: No intrahepatic or extrahepatic dilation, accounting for age. Spleen: No splenomegaly. Pancreas: No pancreatic ductal dilation. Adrenals: No adrenal nodule. Kidneys and ureters: There is left perinephric fat stranding and mild to moderate left-sided hydronep hrosis and proximal hydroureter. There is a 5 mm stone seen in proximal left ureter measures 570 Houn sfield unit in density. More distal left ureter is normal in size. No right-sided hydronephrosis. No renal cystic lesion which requires follow up. No solid mass. Stomach, bowel and peritoneum: No gastric or small bowel dilation. No abnormal wall thickening. No pa thologic free fluid. Sigmoid diverticulosis is seen without sigmoid colon wall thickening or mesenter ic fat stranding. No peritoneal free air. Lymph nodes: No central or retroperitoneal adenopathy. Vessels: No infrarenal aortic aneurysm. Patent portal vein. PELVIS Reproductive organs: Enlarged prostate gland with mass effect on floor of urinary bladder is seen.. Bladder: No abnormal wall thickening, accounting for underdistention. Pelvic lymph nodes: No pelvic adenopathy by size criteria. Bones: No aggressive osseous abnormality. Other: No significant ventral or inguinal hernia. IMPRESSION: 1. 5 mm left proximal ureteral stone with mild to moderate left-sided hydronephrosis and proximal hyd roureter. The stone measures 570 Hounsfield unit in density. No right-sided stones or hydronephrosis. No solid-appearing renal lesion. Normal-appearing urinary bladder. Enlarged prostate gland. 2. No bowel obstruction or abnormal bowel wall thickening. Sigmoid diverticulosis without evidence of acute diverticulitis. No free fluid of free air. 3. Cholelithiasis without CT evidence of acute cholecystitis. Reviewed by: Hunter Millan MD on 08/16/2023 11:24 AM PDT Approved by: Hunter Millan MD on 08/16/2023 11:24 AM PDT Station ID: [id number]
[2023-08-16] MEDS: KETOROLAC 30 MG/ML VIAL IVP STA (11:42)
[2023-08-16 12:44] LABS: BILIRUBIN,URINE SMALL (NEGATIVE); CLARITY,URINE SL. CLOUDY (CLEAR); GLUCOSE, URINE (UA) NEGATIVE (NEGATIVE); KETONES,URINE (UA) TRACE mg/dL (NEGATIVE); LEUKOCYTE ESTERASE, URINE NEGATIVE (NEGATIVE); NITRITE,URINE NEGATIVE (NEGATIVE); OCCULT BLOOD,URINE LARGE (NEGATIVE); PROTEIN,URINE 30 mg/dL (NEGATIVE); UROBILINOGEN,URINE 0.2 (NORMAL) E.U./dL (NORMAL)
[2023-08-16 13:08] LABS: RBC,URINE TNTC /HPF (0-5); SQUAMOUS EPITHELIAL CELL,UR NONE SEEN (<= Few)
[2023-08-16 13:09] LABS: BACTERIA,URINE Many /HPF (None Seen)
[2023-08-16 13:10] LABS: MUCUS,URINE Few Strands
[2023-08-16 13:37] VITALS: BP 124/80; O2SAT 92
[2023-08-16] MEDS: iohexoL-300 100 ML VIAL IVP ONE (15:58)
== END 2023-08-16 13:30 | disposition home or self-care (01) ==
LOC: ED 09:35
DX: N13.2 Hydronephrosis with renal and ureteral calculous obstruction (principal); N39.0 Urinary tract infection, site not specified; I10 Essential (primary) hypertension; E78.00 Pure hypercholesterolemia, unspecified; Z79.82 Long term (current) use of aspirin; I44.4 Left anterior fascicular block
CPT/HCPCS: 36415; 71045; 74177; 80053; 81001; 83690; 84484; 85025; 87086; 93005; 96374; 96375; 99284; 99285; J1170; Q9967; 81003

== ENCOUNTER 2023-09-21 08:15 | Outpatient (CLI) | payer MEDICARE ==
--- NOTE | 2023-09-22 10:20 | CT Report ---
PROCEDURE: Abdomen/Pelvis WO INDICATIONS: URETERIC STONE TECHNIQUE: A CT scan of the abdomen and pelvis was performed without the use of intravenous contrast. Images we re recorded and evaluated at appropriate window settings. Reformats: coronal and sagittal. For radiat ion dose reduction, the following was used: automated exposure control, adjustment of mA and/or kV ac cording to patient size. COMPARISON: CT abdomen and pelvis, 08/16/2023. FINDINGS: Image quality: Diagnostic. Lower chest: Dependent atelectasis at lung bases. Heart size is normal. Severe coronary calcification . Kidneys and ureters: The proximal left ureter stone seen on the last exam is no longer present. There is a 4 mm stone in the distal left ureter (series 2 image 66; series 4 image 79). There is a 2 mm no nobstructive stone in left kidney. Mild left hydronephrosis and perinephric stranding. Kidneys are no rmal in size. Liver: No contour-deforming mass. Gallbladder: There is a tiny gallstones in the gallbladder neck. Biliary tree: No intrahepatic or extrahepatic dilation, accounting for age. Spleen: No splenomegaly. Pancreas: No pancreatic ductal dilation. Adrenals: No adrenal nodule. Stomach, bowel and peritoneum: No gastric or small bowel dilation. No abnormal wall thickening. Diver ticulosis without acute diverticulitis. No pathologic free fluid. Lymph nodes: No central or retroperitoneal adenopathy. Vessels: No infrarenal aortic aneurysm. Severe atherosclerotic calcifications. Reproductive organs: Unremarkable. Bladder: Bladder wall thickness is normal, accounting for underdistention. No calcified bladder stone s. Pelvic lymph nodes: No adenopathy by size criteria. Bones: No aggressive osseous abnormality. Scoliosis. Mild anterior wedge deformity of L2. Spondylitic changes in lumbar spine. Other: No significant ventral or inguinal hernia. IMPRESSION: 1. There is a 4 m stone in the distal left ureter, likely the previously seen proximal left ureter st one. Mild left hydronephrosis is present. An additional 2 mm nonobstructive stone is noted in the lef t kidney. 2. Diverticulosis without diverticulitis. 3. A tiny gallstone in the gallbladder neck. Reviewed by: Myles Castillo MD on 09/22/2023 10:18 AM PDT Approved by: Myles Castillo MD on 09/22/2023 10:18 AM PDT Station ID: [id number]
== END 2023-09-21 08:16 | disposition home or self-care (01) ==
LOC: DI 08:15
PROVIDERS: ATTEND Urology
DX: N13.2 Hydronephrosis with renal and ureteral calculous obstruction (principal); K57.90 Diverticulosis of intestine, part unspecified, without perforation or abscess without bleeding; K80.20 Calculus of gallbladder without cholecystitis without obstruction

== ENCOUNTER 2023-10-04 06:23 | Day surgery (SDC) | payer MEDICARE ==
[~2023-10-04 06:23] MED LIST changes: -BUPIVACAINE 0.5% PF 10 ML VIAL ONE; -GADOBUTROL 7.5 MMOL/7.5 ML VIAL ONE; -LIDOCAINE-MPF 1% 5 ML VIAL ONE; +ceFAZolin 2 GM VIAL ONE
[2023-10-04] MEDS: LACTATED RINGERS 1,000 ML IV ONE (06:34)
--- NOTE | 2023-10-04 07:03 | ANESTHESIA ---
Pre-Anesthesia VS, & Labs - Diagnosis left ureteral stone - Procedure laser lithotripsy Vital Signs: Temp Pulse Resp BP Pulse Ox O2 Flow Rate 36.1 C L 45 L 15 134/70 H 96 10/04/23 06:39 10/04/23 06:39 10/04/23 06:39 10/04/23 06:39 10/04/23 06:39 Height: 5 ft 8 in Weight (kg): 75.3 kg Body Mass Index: 25.2 BMI Classification: Overweight - NPO >8 hours Home Medications and Allergies Home Medications: Ambulatory Orders Cholecalciferol [Vitamin D3] 50 mcg PO DAILY 09/24/23 Multivitamin 1 each PO DAILY 09/24/23 Rosuvastatin Calcium 20 mg PO DAILY 09/24/23 Vitamin K2 [Menauinone-7] 40 mcg PO DAILY 09/24/23 Aspirin [Aspirin EC] 81 mg PO DAILY 05/26/19 Famotidine [Pepcid] 20 mg PO ONCE PRN 05/26/19 Metoprolol Succinate 50 mg PO DAILY 05/26/19 lisinopriL [Prinivil] 5 mg PO DAILY 05/26/19 Cholecalciferol [Vitamin D3] 50 mcg PO DAILY 09/24/23 Multivitamin 1 each PO DAILY 09/24/23 Rosuvastatin Calcium 20 mg PO DAILY 09/24/23 Vitamin K2 [Menauinone-7] 40 mcg PO DAILY 09/24/23 Allergies/Adverse Reactions: Allergies Allergy/AdvReac Type Severity Reaction Status Date / Time oxycodone Allergy Rash Verified 08/16/23 09:48 Anes History & Medical History - Anesthetic History Anesthesia Complications: reports: No previous complications Family history of Anesthesia Complications: Denies - Medical History Cardiovascular: reports: Hypertension, High cholesterol, [place] (1 stent, takes asa, doing well, walks 4 miles , no cp/sob), Other Pulmonary: reports: None Gastrointestinal: reports: GERD (occasional zantac) Urinary: reports: Kidney stones Musculoskeletal: reports: None Endocrine/Autoimmune: reports: None Skin: reports: None Smoking Status: Former smoker Psychosocial: reports: No issues indicated - Surgical History General: reports: Appendectomy, Colonoscopy, Other Cardiothoracic: reports: Coronary stent Urologic: reports: Ureterolithotomy (stones) Orthopedic: reports: Rotator cuff repair Results - EKG Results EKG Comparison: Reviewed EKG Exam General: Alert Dental: WNL Mouth Openin Fingerbreadth Neck Mobility: Normal Mallampati classification: II Thyromental Distance: 4-6 cm Respiratory: Lungs clear Cardiovascular: Regular rate Plan Anesthesia Type: General Consent for Procedure(s) Verified and Reviewed: Yes Code Status: Attempt Resuscitation ASA classification: 2-Mild systemic disease Is this case an emergency?: No
[2023-10-04] MEDS ORDERED: NALOXONE 0.4 MG/ML VIAL IVP PRN (07:04)
[2023-10-04] MEDS ORDERED: ePHEDrine 50 MG/ML VIAL IVP PRN (07:04)
[2023-10-04] MEDS ORDERED: ONDANSETRON 4 MG/2 ML VIAL IVP PRN ×2 (07:04→08:23)
[2023-10-04] MEDS ORDERED: METOCLOPRAMIDE 10 MG/2 ML VIAL IVP PRN (07:04)
[2023-10-04] MEDS ORDERED: fentaNYL 100 MCG/2 ML VIAL IVP PRN (07:04)
[2023-10-04] MEDS ORDERED: HYDROmorphone 0.5 MG/0.5 ML SYRINGE IVP PRN (07:04)
[2023-10-04] MEDS ORDERED: ATROPINE ABBOJECT 1 MG/10 ML SYRINGE IVP PRN (07:04)
[2023-10-04] MEDS ORDERED: MORPHINE 2 MG/ML CARPUJECT IVP PRN (07:04)
[2023-10-04] MEDS ORDERED: LIDOCAINE 2% URO-JET 5 ML SYRINGE UR ONE (07:06)
[2023-10-04] MEDS ORDERED: iohexoL-240 10 ML VIAL IVP ONE (07:17)
[2023-10-04] MEDS ORDERED: LIDOCAINE-PF 2% 10 ML AMP SUBQ ONE (07:17)
[2023-10-04] MEDS ORDERED: PROPOFOL 200 MG/20 ML VIAL IVP ONE (07:17)
[2023-10-04] MEDS ORDERED: fentaNYL 100 MCG/2 ML VIAL ONE (07:18)
[2023-10-04] MEDS ORDERED: MIDAZOLAM 2 MG/2 ML VIAL ONE (07:18)
[2023-10-04] MEDS: iohexoL-240 10 ML VIAL IVP ONE (07:50)
[2023-10-04] MEDS ORDERED: ePHEDrine 50 MG/ML VIAL IVP ONE (07:51)
[2023-10-04] MEDS: LIDOCAINE 2% URO-JET 5 ML SYRINGE UR ONE (07:51)
[2023-10-04] MEDS ORDERED: PHENYLEPHRINE HCL 0.5 MG/5 ML AMPULE ONE (07:55)
[2023-10-04] MEDS ORDERED: LACTATED RINGERS 1,000 ML IV SCH (08:00)
[2023-10-04] MEDS ORDERED: DEXAMETHASONE 4 MG/ML VIAL ONE (08:08)
[2023-10-04] MEDS ORDERED: ONDANSETRON 4 MG/2 ML VIAL ONE (08:08)
[2023-10-04] MEDS ORDERED: KETOROLAC 30 MG/ML VIAL ONE (08:10)
[2023-10-04] MEDS: LACTATED RINGERS 300 ML IV ONE (08:31)
--- NOTE | 2023-10-04 08:31 | Discharge Plan ---
Discharge Plan Problem Reviewed?: Yes Disposition: Home, Self Care Condition: Good Prescriptions: Docusate Sodium 100Mg Capsule [Colace 100Mg Capsule] 100 mg PO DAILY #14 cap cephALEXin [Keflex] 500 mg PO ONCE #1 cap Phenazopyridine HCl [Pyridium] 200 mg PO TID #9 tablet traMADol [Ultram] 50 mg PO Q4H PRN #12 tablet PRN Reason: Pain 5-7 Diet: Regular Activity Restrictions: No Restrictions Shower Restrictions: No Driving Restrictions: No Instruction Topics: Stents Ureteral Additional Instructions or Follow Up instructions: You have a ureteral stent in place. You will be contacted for follow-up in 1 to 2 weeks for cystoscopy and stent removal in the office. This is a basic procedure and you can eat before hand and you can drive yourself to and from the appointment. Take antibiotic prescribed on the way No Smoking: If you smoke, Please STOP! Call for help. Follow-up with: Deidra Ross ARNP [Primary Care Provider] - Carlos Enrique Lafleur MD [Provider Admit Priv/Credential] -
--- NOTE | 2023-10-04 08:34 | OPERATIVE REPORT ---
Operative Report - General Procedure Date: 10/04/23 Planned Procedure: Cystoscopy, left ureteroscopy, laser lithotripsy, stent Pre-Op Diagnosis: left ureteral stone Procedure Performed: Cystoscopy, urethral dilation, left ureteroscopy, laser lithotripsy, stent Post Op Diagnosis: left ureteral stone, urethral stricture - Procedure Note Primary Surgeon: Miquel Anesthesia Provider: SHASHANK Liang Anesthesia Technique: General LMA Pathology: left ureteral stone Estimated Blood Loss (mL): 2 Indications: Left ureteral stone Findings: Narrow fossa navicularis distal ureteral stone Complications: none - Other Other Information/Narrative: After informed consent was obtained the patient was brought to the OR and laid in the supine position. The patient was anesthetized per anesthesia protocols and prepped draped in usual sterile fashion. A formal timeout was performed reconfirming the patient, procedure and laterality. His fossa navicularis was noted to be narrow and so this was dilated using urethral sounds from 16 Haitian to 28 Haitian. A 22 Haitian cystoscope was advanced easily into urinary bladder. He was noted to have trilobar hypertrophy of the prostate with a mild median lobe. His bladder mucosa was otherwise normal. His ureteral orifices were difficult to identify. His left ureteral orifice was eventually identified. A sensor wire was placed through the orifice up into the kidney. Using short semirigid ureteroscope we advanced this up and into the bladder. A second sensor wire was used to cannulate the ureteral orifice as it was quite tight. We then advanced the ureteroscope into the distal ureter where we could see a 4 mm yellow hard stone. Using a 200 m laser fiber at a rate of 8 and a power of 0.8 we dusted the stone until there was a single fragment remaining. This was grasped and removed using a basket. We then placed a 6 Haitian 26 cm double-J stent with good curling of the kidney and good curling noted in the bladder under fluoroscopic and cystoscopic guidance. The bladder was emptied and a Uro-Jet was placed. This concluded the procedure and the patient tolerated well. All counts were correct. The patient will follow-up in 1 to 2 weeks time for cystoscopy and stent removal
[2023-10-04] MEDS ORDERED: traMADol 50 MG TABLET PO ONE (08:57)
[2023-10-04] MEDS: traMADol 50 MG TABLET PO PRN (08:58)
[2023-10-04 09:04] VITALS: BP 139/79; O2SAT 96
--- NOTE | 2023-10-04 13:42 | ANESTHESIA POST OP EVALUATION ---
Anesthesia Post Eval - Post Anesthesia Eval Vitals: Last Vital Signs Temp 36 C L 10/04/23 08:59 Pulse 55 L 10/04/23 08:59 Resp 16 10/04/23 08:59 BP 139/79 H 10/04/23 08:59 Pulse Ox 96 10/04/23 08:59 O2 Flow Rate CV Function Including HR & BP: Stable Pain Control: Satisfactory Nausea & Vomiting: Negative Mental Status: Baseline Respiratory Status: Airway Patent Hydration Status: Satisfactory Anesthesia Complications: None
--- NOTE | 2023-10-04 14:05 | XRAY Report ---
PROCEDURE: OR C-Arm Procedure INDICATIONS: STENT PLACEMENT FLUORO TIME: 0.01 MIN TECHNIQUE: Single intraoperative fluoroscopic image of abdomen with pain. COMPARISON: CT of abdomen and pelvis dated 09/22/2023. FINDINGS: Intraoperative fluoroscopic image shows left-sided ureteral stent in place. IMPRESSION: Fluoroscopy time is was provided intraoperatively for left-sided ureteral stent placement by the [facility] physician. Reviewed by: Hunter Millan MD on 10/04/2023 2:04 PM PDT Approved by: Hunter Millan MD on 10/04/2023 2:04 PM PDT Station ID: [id number]
== END 2023-10-04 06:24 | disposition home or self-care (01) ==
LOC: SDS 06:23
PROVIDERS: ATTEND Urology
PROC: 0T778DZ Dilation of Left Ureter with Intraluminal Device, Via Natural or Artificial Opening Endoscopic (ICD-10-PCS; 2023-10-04)
PROC: 0TC78ZZ Extirpation of Matter from Left Ureter, Via Natural or Artificial Opening Endoscopic (ICD-10-PCS; principal; 2023-10-04 07:30)
DX: N20.1 Calculus of ureter (principal); N40.1 Benign prostatic hyperplasia with lower urinary tract symptoms; R39.12 Poor urinary stream; J43.9 Emphysema, unspecified; I25.2 Old myocardial infarction; I10 Essential (primary) hypertension; Z95.5 Presence of coronary angioplasty implant and graft; Z87.891 Personal history of nicotine dependence
CPT/HCPCS: 52356; 82365; A9270; C1758; C2617; J2372; J7120; Q9966

== ENCOUNTER 2023-10-04 13:45 | Outpatient (CLI) | payer MEDICARE | END 2023-10-04 13:46 | disposition home or self-care (01) | LOC: LAB.R 13:45 | PROVIDERS: ATTEND Registered Nurse | DX: N20.1 Calculus of ureter (principal) | CPT/HCPCS: 82365 ==